=== PATIENT | male | born 1995 | race Hispanic/Latino ===

== ENCOUNTER 2019-10-13 18:33 | Emergency (ER) | payer SELFPAY ==
[2019-10-13 18:36] VITALS: BP 148/92; PULSE 67; RESP 18; TEMP 36.6; O2SAT 100
[2019-10-13] MEDS: SODIUM CHLORIDE 0.9% IV 1,000 ML 999 ML IV CONT (19:38)
[2019-10-13 19:39] LABS: Basophils Absolute Auto 0.1 K/mm3 (0.0-0.1); Basophils Percent Auto 0.6 % (0.2-1.2); Eosinophils Absolute Auto 0.4 K/mm3 (0-0.3); Eosinophils Percent Auto 4.4 % (0-4.4); Hematocrit 42.7 % (42.0-52.0); Hemoglobin 15.3 g/dL (14.0-18.0); Immature Granulocyte Absolute 0.03 K/mm3 (0.00-0.031); Immature Granulocyte Percent A 0.3 % (0-0.5); Lymphocytes Absolute Auto 2.09 K/mm3 (0.9-3.2); Lymphocytes Percent Auto 24.1 % (18.3-44.2); Mean Corpuscular HGB Conc 35.8 g/dl (32-36); Mean Corpuscular Hemoglobin 31.7 pg (26-34); Mean Corpuscular Volume 88.4 fl (80-100); Mean Platelet Volume 9.9 fl (7.4-10.4); Monocytes Absolute Auto 0.9 K/mm3 (0.1-0.6); Monocytes Percent Auto 10.4 % (2.6-8.5); Neutrophils Absolute Auto 5.2 K/mm3 (1.3-6.7); Neutrophils Percent Auto 60.2 % (45.5-73.1); Platelet Count Result 280 k/mm3 (150-375); Red Blood Count 4.83 M/mm3 (4.6-6.20); Red Cell Distribution Width 11.9 % (11.5-14.5); White Blood Count 8.7 K/mm3 (4.5-10.0)
[2019-10-13 19:52] LABS: Alanine Aminotransferase 18 U/L (4-50); Albumin Level 4.5 g/dL (3.5-5.1); Alkaline Phosphatase 59 U/L (38-126); Anion Gap 7 mmol/L (8-16); Aspartate Amino Transferase 21 U/L (17-59); Bilirubin,Total 0.5 mg/dL (0.2-1.3); Blood Urea Nitrogen 12 mg/dL (9-20); Calcium 8.7 mg/dL (8.4-10.2); Carbon Dioxide 27 mmol/L (22-30); Chloride 103 mmol/L (98-107); Creatine Kinase 128 U/L (55-170); Estimated Glomerular Filt Rate > 60; Glucose 101 mg/dL (75-110); Potassium 3.9 mmol/L (3.4-5.0); Sodium 137 mmol/L (137-145)
--- NOTE | 2019-10-13 20:41 | ED.GENADULT ---
HPI - General Adult General Chief complaint: Weakness <Allen Myers PA-C - Last Filed: 10/13/19 20:44> Stated complaint: weakness/not sleeping <Allen Myers PA-C - Last Filed: 10/13/19 20:44> Time Seen by Provider: 10/13/19 18:46 <ANDREAS Hunter Last Filed: 10/13/19 20:44> Source: patient and family <ANDREAS Hunter Last Filed: 10/13/19 20:44> Mode of arrival: ambulatory <Allen Myers PA-C - Last Filed: 10/13/19 20:44> Limitations: no limitations <Allen Myers PA-C - Last Filed: 10/13/19 20:44> History of Present Illness HPI narrative: Patient is a 23-year-old male who presents to emergency department for evaluation of having been up for a few days was doing some hallucinating and paranoid behavior at home brought in by family and 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 and has been abusing methamphetamine on arrival patient in the room with no distress denies any pain notes that he has not been sleeping and eating little over the last several days on a meth binge but has no other complaints <Allen Myers PA-C - Last Filed: 10/13/19 20:44> Related Data Home medications: Home Medications Medication Instructions Recorded Confirmed No Home Medications 10/13/19 10/13/19 <Allen Myers PA-C - Last Filed: 10/13/19 20:44> Allergies/adverse reactions: Allergies Allergy/AdvReac Type Severity Reaction Status Date / Time No Known Allergies Allergy Verified 10/13/19 19:13 <Allen Myers PA-C - Last Filed: 10/13/19 20:44> Review of Systems Review of Systems: All systems reviewed & are unremarkable except as noted in HPI and below <Allen Myers PA-C - Last Filed: 10/13/19 20:44> [facility] Social History Social History: Social History (Updated 10/13/19 @ 20:42 by Allen Myers PA-C) Smoking status: Never smoker Substance use type: marijuana and amphetamines Gender identity (if verbalized by the patient): Male <ANDREAS Hunter Last Filed: 10/13/19 20:44> Exam Narrative: Exam Narrative: GENERAL: Well-appearing, well-nourished, and in no acute distress. HEAD: Normocephalic, atraumatic. EYES: PERRLA and EOMI. ENT: Nares clear, no rhinorrhea or epistaxis. Mucous membranes moist. CHEST: Clear to auscultation. No respiratory distress. No wheezes rales or rhonchi HEART: Regular rate and rhythm. No murmur heard. Normal peripheral pulses. ABDOMEN: Soft, nontender, nondistended EXTREMITIES: Normal range of motion. No edema. SKIN: Warm, dry, no rash. NEURO: No focal deficits. Alert and oriented x3. Cranial nerves II through XII grossly intact PSYCH: Normal mood and affect. <ANDREAS Hunter Last Filed: 10/13/19 20:44> Course Course Emergency Course: Patient in the room in no distress normal blood work was hydrated in the emergency department will be discharged home advised to discontinue methamphetamine use <ANDREAS Hunter Last Filed: 10/13/19 20:44> Vital Signs Vital signs: Vital Signs Temperature 97.8 F 10/13/19 18:36 Pulse Rate 67 10/13/19 18:36 Respiratory Rate 18 10/13/19 18:36 Blood Pressure 148/92 H 10/13/19 18:36 Pulse Oximetry 100 10/13/19 18:36 Temperature 98.6 F 10/13/19 20:49 Pulse Rate 52 L 10/13/19 20:49 Respiratory Rate 18 10/13/19 20:49 Blood Pressure 144/95 H 10/13/19 20:49 Pulse Oximetry 100 10/13/19 20:49 <ANDREAS Hunter Last Filed: 10/13/19 20:44> Vital Signs Temperature 97.8 F 10/13/19 18:36 Pulse Rate 67 10/13/19 18:36 Respiratory Rate 18 10/13/19 18:36 Blood Pressure 148/92 H 10/13/19 18:36 Pulse Oximetry 100 10/13/19 18:36 Temperature 98.6 F 10/13/19 20:49 Pulse Rate 52 L 10/13/19 20:49 Respiratory Rate 18 10/13/19 20:49 Blood Pressure 144/95 H 10/13/19 20:49 Pulse Oximetry 100 10/13/19 20:49 <Rajni Marquez MD - Last Filed: 10/14/19 07:
[2019-10-13 20:49] VITALS: BP 144/95; PULSE 52; RESP 18; TEMP 37; O2SAT 100
== END 2019-10-13 20:50 | disposition home or self-care (01) ==
PROVIDERS: Emergency Medicine Emergency Medical Services; Emergency Provider Emergency Medicine
DX: F15.10 Other stimulant abuse, uncomplicated (principal)
CPT/HCPCS: 36415; 80053; 82550; 85025; 96360; 99283; J7030